=== PATIENT | female | born 1980 | race Caucasian/White ===

== ENCOUNTER 2021-08-12 20:31 | Emergency (ER) | payer OTHER ==
[~2021-08-12] VITALS: Ht 160 cm; Wt 52.2 kg
[~2021-08-12 20:31] MED LIST: CLEOCIN HCL300 MG PO; CLONAZEPAM; ESTRADIOL TD; FLEXERIL PO; HYDROCODON-ACE1 EAC7 PO; IBUPROFEN 800800 MG PO; LAMICTAL XR50 MG PO; LEXAPRO 10 MG T10 MG PO; MACRODANTIN100 MG; MEDROLDOSEPACK PO; NAPROSYN500 MG PO; NORCO 5-325 TA1 EACH PO; PAXIL; PENICILLIN VK500 M1 PO; PERCOCET 5-3251 EACH PO; PROZAC; PYRIDIUM200 M1; SEROQUEL 50 MG50 M2; SYNTHROID200 MCG PO; TAMSULOSIN HCL0.4 M1 PO; TYLENOL W/CODEI1 TA2 PO; ULTRAM 50MG TAB50 MG PO; VENLAFAXINE HCL75 M2; VICODIN 5-5001 EACH PO
[2021-08-12] MEDS ORDERED: LEXAPRO 10 MG T10 M2 PO (20:45)
[2021-08-12] MEDS ORDERED: ACETAMINOPHEN-1 EAC2 PO (21:55)
[2021-08-12] MEDS ORDERED: IBUPROFEN 600600 M1 PO (21:55)
[2021-08-12 22:13] VITALS: BP 145/771
== END 2021-08-12 22:13 | disposition home or self-care (01) ==
LOC: M.ERS 20:31
DX: S52.501A Unspecified fracture of the lower end of right radius, initial encounter for closed fracture (principal); F41.9 Anxiety disorder, unspecified; F32.9 Major depressive disorder, single episode, unspecified; E03.9 Hypothyroidism, unspecified; F17.210 Nicotine dependence, cigarettes, uncomplicated; Z90.49 Acquired absence of other specified parts of digestive tract; Z90.710 Acquired absence of both cervix and uterus; Z79.899 Other long term (current) drug therapy; Z88.1 Allergy status to other antibiotic agents; Z88.2 Allergy status to sulfonamides; W19.XXXA Unspecified fall, initial encounter; Y93.89 Activity, other specified; Y92.89 Other specified places as the place of occurrence of the external cause; Y99.8 Other external cause status